=== PATIENT | female | born 1970 | race Caucasian/White ===

== ENCOUNTER 2017-04-01 22:27 | Emergency (ER) | payer OTHER ==
[~2017-04-01] VITALS: Ht 162.6 cm; Wt 60.7 kg
[~2017-04-01 22:27] MED LIST: BACTRIM,SEPT1 TABLET PO; BENADRYL25 MG PO; IBUPROFEN800 MG PO; PEPCID20 MG PO
[2017-04-01 23:33] LABS: ADD MIUA? YES; BILIRUBIN NEGATIVE; BLOOD NEGATIVE; COLOR YELLOW ((YELLOW)); GLUCOSE (STRIP) NEGATIVE; KETONES NEGATIVE; LEUKOCYTES NEGATIVE; NITRITE NEGATIVE; PROTEIN (STRIP) NEGATIVE; UROBILINOGEN 0.2 MG/DL (0.2-1.0)
[2017-04-01 23:35] LABS: HEMATOCRIT 42.6 % (36.0-46.0); MCH 34.6 PG (29.0-34.0); MCHC 34.7 G/DL (30.0-36.0); MCV 99.5 FL (83-99); MEAN PLAT.VOLUME 11.5 uM^3 (9.5-12.4); PLATELET COUNT 188 K/uL (156-360); RBC DIS.WIDTH-CV 12.2 % (11.8-14.6); RBC DIS.WIDTH-SD 44.8 % (39-53); RED BLOOD COUNT 4.28 M/uL (3.80-5.20); WHITE BLOOD COUNT 6.5 K/uL (4.1-10.2)
[2017-04-01 23:36] LABS: BACTERIA NONE SEEN /HPF; EPITHELIAL CELLS 2+ /HPF; MUCUS TRACE /LPF; UCUL ADDED? NO; WHITE BLOOD CELLS 0-5 /HPF (0-5)
[2017-04-01 23:42] LABS: POTASSIUM ND MEQ/L (3.7-5.4)
[2017-04-01 23:44] LABS: SPECIFIC GRAVITY 1.078 (1.000-1.030)
[2017-04-01 23:53] LABS: CHLORIDE 97 mEq/L (99-109); SODIUM 139 mEq/L (136-147)
[2017-04-01 23:55] LABS: GLUCOSE 97 mg/dL (70-99)
[2017-04-01 23:57] LABS: ANION GAP 14 MEQ/L (2-14); TOTAL BILIRUBIN 0.3 mg/dL (0.0-1.0)
[2017-04-01 23:58] LABS: TROP-I INTERPRETATION NEGATIVE; TROPONIN-I < 0.01 ng/mL (0.0-0.30)
[2017-04-01 23:59] LABS: ALKALINE PHOSPHATASE 86 IU/L (3-129); GFR ESTIMATE (CALCULATED) > 59 mL/min/
[2017-04-02] LABS: UREA NITROGEN (BUN) 8 mg/dL (9-23)
[2017-04-02 00:02] LABS: LIPASE 38 U/L (1.0-51.0)
[2017-04-02] MEDS ORDERED: PEPCID20 MG PO (00:55)
[2017-04-02] MEDS ORDERED: NORCO 5/3251 TABLET PO (00:55)
[2017-04-02] MEDS ORDERED: ZOFRAN4 MG PO (00:55)
[2017-04-02 01:09] VITALS: BP 123/80
[2017-04-02 01:15] LABS: POTASSIUM 2.8 mEq/L (3.7-5.4)
== END 2017-04-02 01:20 | disposition home or self-care (01) ==
LOC: EME 22:27
PROVIDERS: Emergency Medicine
DX: R11.2 Nausea with vomiting, unspecified (principal); R10.9 Unspecified abdominal pain; E87.6 Hypokalemia; F17.200 Nicotine dependence, unspecified, uncomplicated
CPT/HCPCS: 74177; 80053; 81003; 83690; 84484; 84999; 85027; 93005; 99281; 99284; J2270; J2405; J7030

== ENCOUNTER 2017-07-10 05:30 | Day surgery (SDC) | payer OTHER ==
[~2017-07-10] VITALS: Ht 152.4 cm; Wt 68.0 kg
[~2017-07-10 05:30] MED LIST changes: +GAS-X125 M1 PO; +KLOR-CON 1010 ME1 PO; +LASIX20 MG PO; +MULTIPLE VITAM1 EAC4 PO; +NORCO 5/3251 TABLET PO; +PROAIR RESPICL90 MCG IH; +PROVENTIL,2.5 MG/3 M IH; +QVAR 40 MCG IN7.3 GM IH; +RANITIDINE HCL150 M1 PO; +SUBOXONE 8 MG-1 EAC2 SL; +WELLBUTRIN XL150 MG PO; +ZOFRAN4 MG PO
[2017-07-10 06:35] LABS: ALBUMIN 4.4 g/dL (3.2-4.8)
[2017-07-10 06:38] LABS: TOTAL PROTEIN 6.8 g/dL (6.4-8.3)
[2017-07-10 06:39] LABS: TOTAL BILIRUBIN 0.5 mg/dL (0.0-1.0)
[2017-07-10 06:40] LABS: ALKALINE PHOSPHATASE 100 IU/L (3-129); SERUM ETHYL ALCOHOL 60 mg/dL
[2017-07-10 06:43] LABS: AST (GOT) 101 IU/L (2-34); DIRECT BILIRUBIN 0.2 mg/dL (0.0-0.3)
[2017-07-10 06:44] LABS: ALT (GPT) 91 IU/L (3-49)
[2017-07-10 11:43] VITALS: BP 162/97
[2017-07-10 12:57] VITALS: BP 123/70
[2017-07-10 13:34] VITALS: BP 140/86
== END 2017-07-10 13:35 | disposition home or self-care (01) ==
LOC: SDC 05:30
PROVIDERS: Obstetrics & Gynecology
PROC: 0UT94ZZ Resection of Uterus, Percutaneous Endoscopic Approach (ICD-10-PCS; principal; 2017-07-10)
PROC: 0UT74ZZ Resection of Bilateral Fallopian Tubes, Percutaneous Endoscopic Approach (ICD-10-PCS; principal; 2017-07-10)
DX: N87.9 Dysplasia of cervix uteri, unspecified (principal); N80.0 Endometriosis of uterus; D25.9 Leiomyoma of uterus, unspecified; N92.0 Excessive and frequent menstruation with regular cycle; I10 Essential (primary) hypertension; J44.9 Chronic obstructive pulmonary disease, unspecified; F17.210 Nicotine dependence, cigarettes, uncomplicated
CPT/HCPCS: 80076; 88307; 94640; 94640 76; 99202; G0480; J0690; J1100; J1170; J1885; J2250; J2405; J2710; J2765; J3010